=== PATIENT | female | born 2000 | race Caucasian/White ===

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

== ENCOUNTER 2024-12-14 11:21 | Emergency (ER) | payer BC, OTHER ==
--- NOTE | 2024-12-14 11:53 | ED ---
General Adult HPI - General Chief complaint: ENT Stated complaint: GLORIA Time Seen by Provider: 12/14/24 11:37 Source: patient, RN notes reviewed Mode of arrival: ambulatory Limitations: no limitations - History of Present Illness Initial comments: 24-year-old female presents to the emergency department patient for body sensation in throat. Patient states that she was seen at urgent care about a month ago and was told she had a peritonsillar abscess. She was started on antibiotics and steroids. She did not have drainage performed. Patient was concerned that this is still present and causing her to have foreign body sensation in her throat. She states that she feels that this is causing her to have some difficulties with swallowing. She denies any fever, chills, nausea, vomiting, pain of the throat. - Related Data Home Medications Medication Instructions Recorded Confirmed No Known Home Medications 12/01/17 12/01/17 Allergies Allergy/AdvReac Type Severity Reaction Status Date / Time No Known Allergies Allergy Verified 12/14/24 11:33 Review of Systems ROS Statement: Those systems with pertinent positive or pertinent negative responses have been documented in the HPI. ROS Other: All systems not noted in ROS Statement are negative. Past Medical History Past Medical History: No Reported History History of Any Multi-Drug Resistant Organisms: None Reported Past Surgical History: No Surgical Hx Reported Past Psychological History: No Psychological Hx Reported Past Alcohol Use History: Occasional Past Drug Use History: None Reported General Exam Limitations: no limitations General appearance: alert, in no apparent distress Head exam: Present: atraumatic, normocephalic, normal inspection Eye exam: Present: normal appearance, PERRL, EOMI. Absent: scleral icterus, conjunctival injection, periorbital swelling ENT exam: Present: normal exam, mucous membranes moist Neck exam: Present: normal inspection. Absent: tenderness, meningismus, lymphadenopathy Respiratory exam: Present: normal lung sounds bilaterally. Absent: respiratory distress, wheezes, rales, rhonchi, stridor Cardiovascular Exam: Present: regular rate, normal rhythm, normal heart sounds. Absent: systolic murmur, diastolic murmur, rubs, gallop, clicks Extremities exam: Present: normal inspection, full ROM, normal capillary refill. Absent: tenderness, pedal edema, joint swelling, calf tenderness Back exam: Present: normal inspection Neurological exam: Present: alert, oriented X3 Psychiatric exam: Present: normal affect, normal mood Skin exam: Present: warm, dry, intact, normal color. Absent: rash Course Vital Signs 12/14/24 11:29 Temperature 98.1 F Pulse Rate 87 Respiratory 18 Rate Blood Pressure 137/84 O2 Sat by Pulse 99 Oximetry Medical Decision Making - Medical Decision Making Was pt. sent in by a medical professional or institution (KEITH Barney, AUTOMATION CONTROLS EXPERT, urgent care, hospital, or group home...) When possible be specific @ -[No] Did you speak to anyone other than the patient for history (EMS, parent, family, police, friend...)? What history was obtained from this source @ -[No] Did you review nursing and triage notes (agree or disagree)? Why? @ -[I reviewed and agree with nursing and triage notes] Were old charts reviewed (outside hosp., previous admission, EMS record, old EKG, old radiological studies, urgent care reports/EKG's, group home records)? Report findings @ -[No old charts were reviewed] Differential Diagnosis (chest pain, altered mental status, abdominal pain women, abdominal pain men, vaginal bleeding, weakness, fever, dyspnea, syncope, headache, dizziness, GI bleed, back pain, seizure, CVA, palpatations, mental health, musculoskeletal)? @ -[not applicable] EKG interpreted by me (3pts min.). @ -[As above] X-rays interpreted by me (1pt min.). @ -[None done] CT interpreted by me (1pt min.). @ -[None done] U/S interpreted by me (1pt. min.). @ -[None done] What testing was considered but not performed or refused? (CT, X-rays, U/S, labs)? Why? @ -[None] What meds were considered but not given or refused? Why? @ -[None] Did you discuss the management of the patient with other professionals (professionals i.e. KEITH Barney, AUTOMATION CONTROLS EXPERT, lab, RT, psych nurse, social media editor, tape cutter, teacher, chief business officer, disease case manager rn)? Give summary @ -[No] Was smoking cessation discussed for >3mins.? @ -[No] Was critical care preformed (if so, how long)? @ -[No] Were there social determinants of health that impacted care today? How? (Homelessness, low income, unemployed, alcoholism, drug addiction, transportation, low edu. Level, literacy, decrease access to med. care, intermediate, rehab)? @ -[No] Was there de-escalation of care discussed even if they declined (Discuss DNR or withdrawal of care, Hospice)? DNR status @ -[No] What co-morbidities impacted this encounter? (DM, HTN, Smoking, COPD, CAD, Cancer, CVA, ARF, Chemo, Hep., AIDS, mental health diagnosis, sleep apnea, morbid obesity)? @ -[None] Was patient admitted / discharged? Hospital course, mention meds given and route, prescriptions, significant lab abnormalities, going to OR and other pertinent info. @ -[hospital course] Undiagnosed new problem with uncertain prognosis? @ -[No] Drug Therapy requiring intensive monitoring for toxicity (Heparin, Nitro, Insulin, Cardizem)? @ -[No] Were any procedures done? @ -[No] Diagnosis/symptom? @ -[default] Acute, or Chronic, or Acute on Chronic? @ -[default] Uncomplicated (without systemic symptoms) or Complicated (systemic symptoms)? @ -[default] Side effects of treatment? @ -[No] Exacerbation, Progression, or Severe Exacerbation? @ -[No] Poses a threat to life or bodily function? How? (Chest pain, [place], [place], pneumonia, PE, COPD, DKA, ARF, appy, cholecystitis, CVA, Diverticulitis, Homicidal, Suicidal, threat to staff... and all critical care pts) @ -[No] - Lab Data Lab Results 12/14/24 Range/Units 12:01 Group A Strep (PCR) NOT DETECTED (Not Detectd) Disposition Clinical Impression: Foreign body sensation in throat Disposition: HOME SELF-CARE Condition: Stable Instructions (If sedation given, give patient instructions): Pharyngitis (ED) Additional Instructions: Please follow-up with your doctor. Return to the emergency department for new or worsening symptoms. Is patient prescribed a controlled substance at d/c from ED?: No Referrals: Nonstaff,Physician [Primary Care Provider] - 1-2 days
--- NOTE | 2024-12-14 12:19 | XR ---
EXAMINATION TYPE: XR chest 2V DATE OF EXAM: 12/14/2024 12:07 PM COMPARISON: None CLINICAL INDICATION: Female, 24 years old with history of shortness of breath; [facility] TECHNIQUE: XR chest 2V Frontal and lateral views of the chest. FINDINGS: Lungs/Pleura: There is no evidence of pleural effusion, focal consolidation, or pneumothorax. Pulmonary vascularity: Unremarkable. Heart/mediastinum: Cardiomediastinal silhouette is unremarkable. Musculoskeletal: No acute osseous pathology. Other findings: None IMPRESSION: No acute cardiopulmonary disease/process. [facility], , 12/14/2024 12:17 PM
--- NOTE | 2024-12-14 12:20 | XR ---
EXAMINATION TYPE: XR soft tissue neck DATE OF EXAM: 12/14/2024 12:07 PM COMPARISON: None CLINICAL INDICATION: Female, 24 years old with history of pain, fb sensation; [facility] TECHNIQUE: The soft tissues of the neck were imaged in frontal and lateral views. FINDINGS: The prevertebral soft tissues are unremarkable. There is no evidence of mass effect or trac heal deviation. No acute osseous abnormality demonstrated. No evidence of subglottic narrowing. IMPRESSION: No significant abnormality identified within the soft tissues of the neck. No evidence for radiopaque foreign body. [facility], , 12/14/2024 12:17 PM
[2024-12-14 13:09] VITALS: BP 125/98; PULSE 82; RESP 19; TEMP 98.2
== END 2024-12-14 13:09 | disposition home or self-care (01) ==
LOC: EC 11:21
DX: R09.A2 Foreign body sensation, throat (principal)
CPT/HCPCS: 70360; 71046; 87070; 87651; 99285

== ENCOUNTER 2025-01-21 14:51 | Inpatient (IN) | payer MEDICAID, OTHER ==
--- NOTE | 2025-01-21 15:39 | ED ---
Psych HPI - General Chief Complaint: Psychiatric Symptoms Stated Complaint: R foot injury Time Seen by Provider: 01/21/25 15:37 Source: patient, RN notes reviewed, old records reviewed Mode of arrival: ambulatory Limitations: no limitations - History of Present Illness Initial Comments: This is a 24-year-old female to ER for evaluation of psychiatric illness patient sent in by primary care with need for inpatient psychiatric evaluation and treatment MD Complaint: suicidal ideation, feels depressed -: days(s) Associated Psychiatric Symptoms: depression, suicidal ideation, racing thoughts Quality: constant, getting worse Improves With: none Worsens With: none Associated Symptoms: denies other symptoms Treatments Prior to Arrival: placed on mental health hold If Self Harm: admits thoughts of self harm - Related Data Previous Rx's Medication Instructions Recorded Melatonin 5 mg PO HS 30 Days #30 tab 01/28/25 Nicotine 14Mg/24Hr Patch [Habitrol] 1 patch TRANSDERM DAILY patch 01/28/25 Nicotine Gum (Polacrilex) 2 mg BUCCAL Q4HR PRN pieceofgum 01/28/25 [Nicorette] Paliperidone [Invega] 6 mg PO HS 30 Days #30 tab 01/28/25 Allergies Allergy/AdvReac Type Severity Reaction Status Date / Time salmon oil Allergy Rash/Hives Verified 01/24/25 18:54 Review of Systems ROS Statement: Those systems with pertinent positive or pertinent negative responses have been documented in the HPI. ROS Other: All systems not noted in ROS Statement are negative. Past Medical History Past Medical History: No Reported History History of Any Multi-Drug Resistant Organisms: None Reported Past Surgical History: No Surgical Hx Reported Past Psychological History: Anxiety, Depression Smoking Status: Current every day smoker, Vaper Past Alcohol Use History: Occasional Past Drug Use History: None Reported - Past Family History Mother History Unknown: Yes General Exam Limitations: no limitations General appearance: alert, in no apparent distress Head exam: Present: atraumatic, normocephalic, normal inspection Eye exam: Present: normal appearance, PERRL, EOMI. Absent: scleral icterus, conjunctival injection, periorbital swelling ENT exam: Present: normal exam, mucous membranes moist Neck exam: Present: normal inspection. Absent: tenderness, meningismus, lymphadenopathy Respiratory exam: Present: normal lung sounds bilaterally. Absent: respiratory distress, wheezes, rales, rhonchi, stridor Cardiovascular Exam: Present: regular rate, normal rhythm, normal heart sounds. Absent: systolic murmur, diastolic murmur, rubs, gallop, clicks GI/Abdominal exam: Present: soft, normal bowel sounds. Absent: distended, tenderness, guarding, rebound, rigid Extremities exam: Present: normal inspection, full ROM, normal capillary refill. Absent: tenderness, pedal edema, joint swelling, calf tenderness Back exam: Present: normal inspection Neurological exam: Present: alert, oriented X3, CN II-XII intact Psychiatric exam: Present: normal affect, normal mood Skin exam: Present: warm, dry, intact, normal color. Absent: rash Course Vital Signs 01/21/25 01/21/25 14:58 21:21 Temperature 98.2 F 97.8 F Pulse Rate 103 H Pulse Rate [ 81 Pulse Oximetery ] Respiratory 22 16 Rate Blood Pressure 132/83 Blood Pressure 116/76 [Left Arm Sitting] O2 Sat by Pulse 100 99 Oximetry - Reevaluation(s) Reevaluation #1: 01/21/25 20:03 Medical records reviewed Reevaluation #2: 01/21/25 20:03 Medical cleared for psychiatric evaluation Reevaluation #3: Was pt. sent in by a medical professional or institution (, PA, AUDIO VISUAL DIRECTOR, urgent care, hospital, or jail...) When possible be specific @ -no Did you speak to anyone other than the patient for history (EMS, parent, family, police, friend...)? What history was obtained from this source @ -no Did you review nursing and triage notes (agree or disagree)? Why? @ -agree Are old charts reviewed (outside hosp., previous admission, EMS record, old EKG, old radiological studies, urgent care reports/EKG's, jail records)? Report findings @ -yes Differential Diagnosis (chest pain, altered mental status, abdominal pain women, abdominal pain men, vaginal bleeding, weakness, fever, dyspnea, syncope, headache, dizziness, GI bleed, back pain, seizure, CVA, palpatations, mental health, musculoskeletal)? @ -prior EKG interpreted by me (3pts min.). @ -no X-rays interpreted by me (1pt min.). @ -no CT interpreted by me (1pt min.). @ -no U/S interpreted by me (1pt. min.). @ -no What testing was considered but not performed or refused? (CT, X-rays, U/S, labs)? Why? @ -none What meds were considered but not given or refused? Why? @ -none Did you discuss the management of the patient with other professionals (professionals i.e. , PA, AUDIO VISUAL DIRECTOR, lab, RT, psych nurse, neonatal social worker, refractory worker, teacher, chief security officer, outpatient case manager)? Give summary @ -no Was smoking cessation discussed for >3mins.? @ -no Was critical care preformed (if so, how long)? @ -no Were there social determinants of health that impacted care today? How? (Homelessness, low income, unemployed, alcoholism, drug addiction, transportation, low edu. Level, literacy, decrease access to med. care, correction, rehab)? @ -none Was there de-escalation of care discussed even if they declined (Discuss DNR or withdrawal of care, Hospice)? DNR status @ -no What co-morbidities impacted this encounter? (DM, HTN, Smoking, COPD, CAD, Cancer, CVA, ARF, Chemo, Hep., AIDS, mental health diagnosis, sleep apnea, morbid obesity)? @ -none Was patient admitted / discharged? Hospital course, mention meds given and route, prescriptions, significant lab abnormalities, going to OR and other pertinent info. @ - 24 female to the ER for evaluation at this point patient presents today for psychiatric illness, patient will be transferred for inpatient psychiatric treatment Transferred for inpatient psychiatric evaluation Undiagnosed new problem with uncertain prognosis? @ -no Drug Therapy requiring intensive monitoring for toxicity (Heparin, Nitro, Insulin, Cardizem)? @ -no Were any procedures done? @ -no Diagnosis/symptom? @ -Acute psychosis Acute, or Chronic, or Acute on Chronic? @ -Acute Uncomplicated (without systemic symptoms) or Complicated (systemic symptoms)? @ -Complicated Side effects of treatment? @ -no Exacerbation, Progression, or Severe Exacerbation? @ -exacerbation Poses a threat to life or bodily function? How? (Chest pain, [place], [place], pneumonia, PE, COPD, DKA, ARF, appy, cholecystitis, CVA, Diverticulitis, Homicidal, Suicidal, threat to staff... and all critical care pts) @ -no Reevaluation #4: Differential Mental Health Depression, anxiety, bipolar, psychosis, schizophrenia, borderline personality, situational depression, adjustment disorder, behavioral disorder, brain tumor, malingering, substance abuse, encephalopathy, medication reaction, dementia, hypothyroidism, degenerative neurologic disorder, lupus.... This is not meant to be all-inclusive list Medical Decision Making - Medical Decision Making 24 female to the ER for evaluation at this point patient presents today for psychiatric illness, patient will be transferred for inpatient psychiatric treatment - Lab Data Lab Results 01/21/25 Range/Units 18:33 SARS-CoV-2 (PCR) Not Detected (Not Detectd) Disposition Clinical Impression: Acute anxiety, Depression, Suicidal ideation, Adjustment reaction of adult life Disposition: TRANSFER TO PSYCH HOSP/UNIT Condition: Stable Is patient prescribed a controlled substance at d/c from ED?: No
[2025-01-21] MEDS: LORazepam 1 MG TAB PO STA (16:34)
[2025-01-21] MEDS ORDERED: OLANZapine 10 MG VIAL IM PRN (20:58)
[2025-01-21] MEDS ORDERED: IBUPROFEN 600 MG TAB PO PRN (20:58)
[2025-01-21] MEDS ORDERED: haloperidoL 5 MG TAB PO PRN (20:58)
[2025-01-21] MEDS ORDERED: LORazepam 2 MG/ML INJ IM PRN (20:58)
[2025-01-21] MEDS ORDERED: MAG HYDROX/AL HYDROX/SIMETH 355 ML BOTTLE PO PRN (20:58)
[2025-01-21] MEDS ORDERED: MAGNESIUM HYDROXIDE 2,400 MG/30 ML CUP PO PRN (20:58)
[2025-01-21] MEDS ORDERED: ACETAMINOPHEN TAB 325 MG TAB PO PRN (20:58)
[2025-01-22 08:08] LABS: Appearance,Urine Cloudy (Clear); Bilirubin,Urine Negative (Negative); Blood,Urine Moderate (Negative); Color,Urine Yellow; Glucose,Urine (UA) Negative (Negative); Ketones,Urine Negative (Negative); Leukocyte Esterase,Urine Negative (Negative); Mucus,Urine Many /hpf; Nitrite,Urine Negative (Negative); PH, Urine 5.5 (5.0-8.0); Protein,Urine Trace (Negative); Specific Gravity,Urine 1.028 (1.001-1.035); Squamous Epithelial Cell,Urine 3 /hpf (0-4); Urobilinogen,Urine <2.0 mg/dL (<2.0); WBC,Urine 4 /hpf (0-5)
[2025-01-22 10:41] LABS: Urine Alcohol Negative (Negative); Urine Barbiturate Negative (Negative); Urine Cocaine Negative (Negative); Urine Methadone Negative (Negative); Urine Opiates Negative (Negative); Urine Phencyclidine Negative (Negative)
[2025-01-22] MEDS: diphenhydrAMINE 50 MG/ML 1 ML VIAL IM STA (11:49)
[2025-01-22] MEDS: OLANZapine 10 MG VIAL IM STA (11:50)
--- NOTE | 2025-01-22 12:12 | P.MHFACE ---
Face to Face Restrain/Seclus - Evaluation Patient's Immediate Situation: Violent behavior Patient's Immediate Situation - Comment: Patient was seen agitated and yelling on the unit. She was checking doors attempting to elope. She was not redirectable and required security and PRN medications that were effective. Patient's Reaction to the Intervention: Uncooperative, Aggressive Patient's Medical & Behavioral Condition: Drowsy, Bizarre behavior Face to Face Eval of Restraint Date: 01/22/25 Face to Face Eval of Restraint Time: 12:00
--- NOTE | 2025-01-22 12:29 | P.HP ---
Psychiatric H&P - . H&P Date: 01/22/25 History & Physical: Allergies Allergy/AdvReac Type Severity Reaction Status Date / Time No Known Allergies Allergy Verified 01/21/25 15:04 Vital Signs Temp 98.0 F 01/22/25 11:09 Pulse 76 01/22/25 11:09 Resp 18 01/22/25 11:09 BP 126/80 01/22/25 11:09 Pulse Ox 98 01/22/25 11:09 FiO2 Intake & Output 01/21/25 01/22/25 01/22/25 18:59 06:59 18:59 Weight 50.349 kg 49.64 kg Laboratory Last Values Urine Color Yellow 01/22/25 07:49 Urine Appearance Cloudy (Clear) H 01/22/25 07:49 Urine pH 5.5 (5.0-8.0) 01/22/25 07:49 Ur Specific [place] 1.028 (1.001-1.035) 01/22/25 07:49 Urine Protein Trace (Negative) H 01/22/25 07:49 Urine Glucose (UA) Negative (Negative) 01/22/25 07:49 Urine Ketones Negative (Negative) 01/22/25 07:49 Urine Blood Moderate (Negative) H 01/22/25 07:49 Urine Nitrite Negative (Negative) 01/22/25 07:49 Urine Bilirubin Negative (Negative) 01/22/25 07:49 Urine Urobilinogen <2.0 mg/dL (<2.0) 01/22/25 07:49 Ur Leukocyte Esterase Negative (Negative) 01/22/25 07:49 Urine WBC 4 /hpf (0-5) 01/22/25 07:49 Ur Squamous Epith Cells 3 /hpf (0-4) 01/22/25 07:49 Urine Mucus Many /hpf (None) H 01/22/25 07:49 Urine HCG, Qual Not Detected (Not Detectd) 01/22/25 07:49 Urine Opiates Screen Negative (Negative) 01/22/25 07:49 Urine Methadone Screen Negative (Negative) 01/22/25 07:49 Ur Propoxyphene Screen Negative (Negative) 01/22/25 07:49 Urine Barbiturates Negative (Negative) 01/22/25 07:49 Ur Phencyclidine Scrn Negative (Negative) 01/22/25 07:49 Ur Amphetamine Screen Positive (Negative) A 01/22/25 07:49 U Benzodiazepines Scrn Positive (Negative) A 01/22/25 07:49 Urine Cocaine Screen Negative (Negative) 01/22/25 07:49 U Cannabinoids Screen Positive (Negative) A 01/22/25 07:49 Urine Alcohol Negative (Negative) 01/22/25 07:49 U Creatinine Drug Scrn 259.0 mg/dL (>=20.0) 01/22/25 07:49 SARS-CoV-2 (PCR) Not Detected (Not Detectd) 01/21/25 18:33 01/22/25 12:14 IDENTIFYING DATA: Patient is a 24-year-old female, living with parents, unemployed CHIEF COMPLAINT: SI HPI: Patient presented to the hospital with mental health concerns. Per EPS, "Patient presented to ED initially for right foot injury, patient had jumped on a table 2 days ago and injured her foot. Patient during ER stay expressed suicidal ideations. Patient assessed in ER27 with parents at bedside per patient request. Patient observed to be sitting up in stretcher at this time. Patient observed to appear disheveled and unkept with fair hygiene. Patient observed to have no eye contact, restlessness, and observed to appear irritable and anxious. Patient denies any history of mental health concerns and no previous mental health hospitalizations. Patient states that she is looking forward to dying, althought has no current plan. Patient states that she was taking zoloft for depression and weaned herself off of it becasue she did not like how it made her feel. Patient unable to elaborate on what she did not like about the medication and could not describe how it made her feel. Patient parents expressed concerns related to auditory and visual hallucinations. Patient denies these and became irritable. Focused re-directed to patient. Patient denies any psychotic symptoms. Spoke to parents again with patient permission, per patient parents patient has been experiencing auditory and visual hallucinations. Describes that patient has believed she could hear and see people inside the home and hear them constantly in the attic. Patient has come to the point of making police reports related to people being in the home, but no other individuals found to be in the home. Parents describe patient having erratic and impulsive behaviors recently. They include that patient spontaneously went on a trip to [place] and was placed in senior living for entering a home that she believed belonged to her because she seen the for sale sign. Patient parents express concern that patient is a potential danger to herself and possibly others at this time. Patient appears to have poor insight into condition, poor judgement, and does not understand reason for needed treatment." Patient was observed in her room and was agreeable to speak with senior grant writer in her room. Patient displayed irritability, not forthcoming with information. She did admit to stopping her antidepressant of 6 months 2 weeks ago due to "not liking my mood." Patient displayed poor eye contact and was fixated on being discharged so that she can smoke her vape. This was discouraged and senior grant writer offered either nicotine gum or patch to help with nicotine cravings however patient declined. She denied any sleep or appetite changed but did admit to low energy, anhedonia, poor concentration. Patient denies any suicidal or homicidal ideations intent or plan. At this time patient denies any auditory or visual hallucinations. Patient denies any flight of ideas racing thoughts and increased in goal directed behavior. Patient admits to using cannabis and nicotine daily. Patient was initially agreeable with [facility] however she quickly became less cooperative, more agitated and was attempting to elope the unit, requiring PRN medications. PAST PSYCHIATRIC HISTORY: Patient has a reported history of depression and ADHD. Patient denies being on any psychiatric medications. She most recently was prescribed zoloft but stopped this 2 weeks ago. Patient denies any previous hospitalizations. Patient denies any psychiatric outpatient follow-up. Patient denies any history of suicide attempts in the past. PMH: as per ER note ALLERGIES: as per EMR SUBSTANCE USE HISTORY: as per HPI FAMILY PSYCHIATRIC/SUBSTANCE USE HISTORY: denies SOCIAL HISTORY: Patient is single and has no children. She completed high school and is currently unemployed, living with her parents. MENTAL STATUS EXAM: General Appearance: Patient appears to be stated age is alert, uncooperative. Patient appears to have poor hygiene and grooming. Behavior: Patient is irritable, guarded and not forthcoming Speech: Patient's speech is fluent and nonpressured. Loud volumes at times when yelling Mood/Affect: Patient reports their mood is depressed, affect is congruent and labile Suicidality/Homicidality: Patient denies having any homicidal ideation intent or plan. Denies any suicidal ideations intent or plan Perceptions: Patient denies any visual hallucinations and denies any auditory hallucinations Though content/process: There is no evidence of any delusional thought content and thought process is linear but illogical at times Memory and concentration: AOX3, grossly intact for the purposes of this session. Can spell "WORLD" backwards Judgment and insight: Poor STRENGTHS/WEAKNESSES: strength is that patient is resilient. Weakness is that patient has poor judgment/insight and is impulsive INTELLECT: Average IMPRESSIONS: Psychosis, unspecified r/o Bipolar I disorder, current episode mixed with psychotic features vs schizoaffective disorder, bipolar type Nicotine dependence Cannabis use disorder PLAN: -Patient is admitted under involuntary status to [facility] for stabilization of psychiatric symptoms and safety. Patient has not signed adult voluntary form and and is placed in patient's chart. A second certification was completed and along with petition will be filed for court. -Medications : Start invega 3 mg at bedtime for psychosis -haldol/ativan PRN for agitation/aggression -Patient was counselled on substance abuse and desired to cut back on use -Patient was informed of the risks, benefits and side effects of the medication and patient verbally consented to taking the medications. Patient did not sign med consent form and was placed in chart. Patient offered and declined patient education sheet for psychotropic medications. -Internal Medicine consult to perform medical evaluation and physical. -NRT -nicotine patch -SW on board for discharge planning. Encourage patient to participate in groups to work on coping skills. Will await deferral and court date.
--- NOTE | 2025-01-22 13:59 | P.CONS ---
History of Present Illness - Reason for Consult Consult date: 01/22/25 Medical management Requesting physician: Chrystal Jiménez - Chief Complaint Abnormal behavior - History of Present Illness Went to three-phase psychiatry unit to see the patient. Nurse informed me that patient had boarded herself in the room. Was given sedatives. Does not be a good time to see the patient. Past Medical History Past Medical History: No Reported History History of Any Multi-Drug Resistant Organisms: None Reported Past Surgical History: No Surgical Hx Reported Past Anesthesia/Blood Transfusion Reactions: No Reported Reaction Smoking Status: Current every day smoker, Vaper - Past Family History Mother History Unknown: Yes Medications and Allergies Home Medications Medication Instructions Recorded Confirmed Type No Known Home Medications 12/01/17 12/01/17 History Allergies Allergy/AdvReac Type Severity Reaction Status Date / Time No Known Allergies Allergy Verified 01/21/25 15:04 Physical Exam Vitals: Vital Signs Temp Pulse Pulse Resp BP BP Pulse Ox 01/22/25 11:09 98.0 F 76 18 126/80 98 01/21/25 21:21 97.8 F 81 16 116/76 99 01/21/25 14:58 98.2 F 103 H 22 132/83 100 Intake and Output 01/21/25 01/22/25 01/22/25 22:59 06:59 14:59 Other: Weight 49.64 kg Results Labs: Abnormal Lab Results - Last 24 Hours (Table) 01/22/25 01/22/25 Range/Units 07:49 07:49 Urine Appearance Cloudy H (Clear) Urine Protein Trace H (Negative) Urine Blood Moderate H (Negative) Urine Mucus Many H (None) /hpf Ur Amphetamine Screen Positive A (Negative) U Benzodiazepines Scrn Positive A (Negative) U Cannabinoids Screen Positive A (Negative)
[2025-01-22] MEDS: NICOTINE 14MG/24HR PATCH TRANSDERM SCH (14:19)
[2025-01-23] MEDS: PALIPERIDONE 3 MG TAB.ER.24 PO SCH (04:20)
[2025-01-23] MEDS ORDERED: OLANZapine ODT 10 MG TAB PO PRN (09:19)
[2025-01-23] MEDS ORDERED: OLANZapine 10 MG VIAL IM PRN (09:19)
[2025-01-23] MEDS: diphenhydrAMINE 50 MG/ML 1 ML VIAL IM STA (09:29)
[2025-01-23] MEDS: OLANZapine 10 MG VIAL IM STA (09:29)
--- NOTE | 2025-01-23 10:33 | P.MHFACE ---
Face to Face Restrain/Seclus - Evaluation Patient's Immediate Situation: Violent behavior Patient's Immediate Situation - Comment: Patient agitated and demanding to go home. She was yelling, slamming doors and not redirectable. Security was contacted and IM medications administered. Patient more calm afterwards but still irritable Patient's Reaction to the Intervention: Angry, Aggressive Patient's Medical & Behavioral Condition: Agitated, Bizarre behavior Need to Continue or Terminate Restraint or Seclusion: Terminate
--- NOTE | 2025-01-23 10:41 | P.PN ---
Progress Note - Text Progress Note Date: 01/23/25 Interval History: Patient was seen wandering the hallways, upset and demanding to leave and being upset that she is involuntarily here. Attempted to speak to patient in an effort to calm her down however patient was not redirectable and stormed off. Patient was not cooperative, was seen yelling and slamming doors and security ultimately had to be called with as needed IM Zyprexa/Benadryl administered. Patient was more calm after as needed medications however was still irritable and antagonistic with public relations writer, expressed her dislike for IM medications and she was encouraged to take medications by mouth instead. She refused her oral Invega last night. Mental Status Exam: General Appearance: Patient appears to be stated age is alert, uncooperative. Behavior: Patient is agitated, upset Speech: Patient's speech is fluent and slightly pressured, loud volume Mood/Affect: Mood is irritable, affect is congruent and labile. Suicidality/Homicidality: Patient denies having any suicidal or homicidal ideation intent or plan. Perceptions: Patient denies any visual hallucinations and denies any auditory hallucinations Though content/process: There is no evidence of any delusional thought content and thought process is linear. Memory and concentration: AOX3, grossly intact for the purposes of this session Judgment and insight: Poor Assessment Psychosis, unspecified Rule out bipolar 1 disorder, current episode mixed with psychotic features versus schizoaffective disorder, bipolar type Nicotine dependence Cannabis use disorder Plan: -Patient continues to meet criteria for inpatient psychiatric admission for symptom stabilization and safety. Patient has not signed adult voluntary form and medication consent and was placed in patient's chart. -Medications: Continue Invega 3 mg at bedtime for psychosis -When necessary Ativan and Zyprexa for agitation/aggression. -Labs: Reviewed -NRT - nicotine patch -SW on board for discharge planning. Encouraged the patient to participate in milieu. Currently awaiting deferral with attorney general and court date.
--- NOTE | 2025-01-24 11:38 | P.PN ---
Progress Note - Text Progress Note Date: 01/24/25 Interval History: Patient was seen wandering the hallways and was directable and agreeable to sp eak with typewriter aligner in the call. She was attempting to call her mom however she had reached voicemail. She was more cooperative with typewriter aligner today, more calm however did display disorganization in thoughts. She took her Invega last night. Patient has a deferral scheduled for this morning and this was discussed further with the patient. She has been tending to her ADLs. She did display some bizarre behaviors as evidenced by having a sanitary pad wrapped on her foot given her recently cutting her foot prior to admission. Patient talked about her previous fantasies of suicidal ideations, states that she acts out all the time aggressively towards her parents and then asked if she would ever see them again. Patient was encouraged to continue taking her medications by mouth so that she does not have to receive any IM injections and to control her aggressive outburst. At this time patient denies any suicidal or homicidal ideations, intent or plan. Patient denies any auditory, visual hallucinations. Patient denies any side effects from the medications and has been compliant with meds. Mental Status Exam: General Appearance: Patient appears to be stated age is alert, directable, and c ooperative. Behavior: Patient is calmly standing without any agitated behavior. Speech: Patient's speech is fluent and nonpressured. Mood/Affect: Mood is improving mildly, affect is congruent and constricted. Suicidality/Homicidality: Patient denies having any suicidal or homicidal ideation intent or plan. Perceptions: Patient denies any visual hallucinations and denies any auditory hallucinations Though content/process: There is evidence of disorganization in thoughts, magical thinking Memory and concentration: AOX3, grossly intact for the purposes of this session Judgment and insight: Improving mildly Assessment Psychosis, unspecified Rule out bipolar 1 disorder current episode mixed with psychotic features versus schizoaffective disorder bipolar type Nicotine dependence Cannabis use disorder Plan: -Patient continues to meet criteria for inpatient psychiatric admission for symptom stabilization and safety. Patient has not signed adult voluntary form and medication consent and was placed in patient's chart. -Medications: Increase Invega to 6 mg at bedtime for psychosis -When necessary Ativan and Zyprexa for agitation/aggression. -Labs: Reviewed -NRT - nicotine patch and gum as needed -SW on board for discharge planning. Encouraged the patient to participate in milieu. Deferral scheduled for this morning, court date scheduled for next Monday
[2025-01-24] MEDS: NICOTINE GUM (POLACRILEX) 2 MG GUM BUCCAL PRN (16:26)
--- NOTE | 2025-01-24 17:52 | P.CONS ---
History of Present Illness - Reason for Consult Consult date: 01/24/25 Medical management Requesting physician: Chrystal Jiménez - Chief Complaint Left foot toe pain - History of Present Illness Nurse called me today that patient was in a much better mood and I could see her today. She initially presented the ER because she had jumped on a table 2 days prior to presentation injuring her left foot. She was restless irritable anxious. She expressed some suicidal ideations. She was prescribed Zoloft for depression and she had apparently taken off of the same. Parents had reported consistent auditory and visual hallucinations. Today when I walked in the room patient sitting on the floor writing apology letters. She is hyperactive in her responses. Laughing. She has a dressing on the left foot 2nd and 3rd toe. Apparently placed in the ER. Otherwise she is eating well. Has been ambulating. 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 Currently not working. Does smoke some cigarettes. Denies use of recreational drugs. Lives with her parents. Physical examination: VITAL SIGNS: 98, 80, 18, RN 12 x 68, 98% room GENERAL: BMI 20, sitting crosslegged on the floor smiling. EYES: [Pupils equal. Conjunctiva sara]l. HEENT: [External appearance of nose and ears normal, oral cavity grossly n ormal]. NECK: [JVD not raised; masses not palpable]. HEART: [First and second heart sounds are normal; no edema]. LUNGS:[ Respiratory rate normal; clear to auscultation]. ABDOMEN: [Soft, nontender, liver spleen not palpable, no masses palpable]. PSYCH: [Alert and oriented x3; mood and affect anxious]l. MUSCULOSKELETAL:No Clubbing/cyanosis;muscles-grossly intact. Left foot 2nd and 3rd toe. Some bruising slight breakdown of skin. [Prior to that I remove the dressing]. Some tenderness NEUROLOGICAL: [Cranial nerves grossly intact; no facial asymmetry, power and sensation grossly intact]. LYMPHATICS: [No lymph nodes palpable in the axilla and neck] NEUROLOGICAL: None INVESTIGATIONS, reviewed in the clinical context: January 22: UA positive for moderate blood. Urine drug screen positive for amphetamine, benzodiazepine, cannabinoids Assessment plan: - Recreational use of amphetamine, benzodiazepine, cannabinoids as urine positive for the same. Patient may have had some withdrawals from the same initially. - Acute trauma to the left foot 2nd and 3rd toe from jumping of foot on the table. Some breakdown of skin with local cellulitis. Silvadene cream. Kerlix and wrap wrap with 2 fingers together. Applied twice daily. -. Psychosis unspecified. Rule out bipolar 1 disorder. With psychotic features/schizoaffective disorder. Follow-up with psychiatry - Chronic nicotine dependence Nicotine patch Care was discussed with the patient. Patient seen in the presence of the nurse. Thank you Past Medical History Past Medical History: No Reported History History of Any Multi-Drug Resistant Organisms: None Reported Past Surgical History: No Surgical Hx Reported Past Anesthesia/Blood Transfusion Reactions: No Reported Reaction Smoking Status: Current every day smoker, Vaper - Past Family History Mother History Unknown: Yes Medications and Allergies Home Medications Medication Instructions Recorded Confirmed Type No Known Home Medications 12/01/17 12/01/17 History Allergies Allergy/AdvReac Type Severity Reaction Status Date / Time No Known Allergies Allergy Verified 01/21/25 15:04 Physical Exam Vitals: Vital Signs Temp Pulse Resp BP 01/24/25 11:26 98.0 F 80 18 112/68 01/23/25 21:00 97.6 F 79 16 94/58
[2025-01-24] MEDS: BACITRACIN OINT 1 EACH PACKET TOPICAL SCH (18:16)
[2025-01-24] MEDS: diphenhydrAMINE 50 MG CAP PO STA (20:34)
[2025-01-24] MEDS: PALIPERIDONE 6 MG TAB.ER.24 PO SCH (20:34)
[2025-01-24] MEDS: FAMOTIDINE 20 MG TAB PO STA (20:34)
[2025-01-24] MEDS: LORazepam 1 MG TAB PO PRN (20:36)
[2025-01-24] MEDS: predniSONE 20 MG TAB PO STA (20:38)
[2025-01-25] MEDS: diphenhydrAMINE 25 MG CAP PO SCH (01:44)
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
--- NOTE | 2025-01-26 11:56 | P.PN ---
Progress Note - Text Progress Note Date: 01/26/25 Dictation was produced using [employer] dictation software. Please excuse any grammatical, word or spelling errors. Interval history: Patient was seen in her room, laying in bed and was directable and agreeable to speak with the documentation writer in the office for psychiatric follow-up. The patient states that she is feeling tired, states that she slept well last night, it is reported that she slept 6 hours last night, states that she was not able to eat breakfast this morning, and reported that she is not feeling hungry. Pt was encouraged to eat her meals and to ask for snacks. States that depression and anxiety are at the moderate side, she rated both at 5/10, she denied any current SI/HI or self harm. She denied any current AVH, or paranoia. She has been compliant with her medication, and she denied any side effects. She denied any muscle stiffness, rigidity, abnormal movements or drooling. States that she was able to speak with her mother yesterday, and reported that it was a good conversation. States that she is tending to her ADL, pt was encouraged to participate in the milieu, and to attend groups. Mental Status Exam: General Appearance: Patient appears to be stated age is alert, directable, and cooperative. Behavior: Patient is calmly standing without any agitated behavior. Speech: Patient's speech is fluent and nonpressured. Mood/Affect: Mood is improving mildly, affect is congruent and constricted. Suicidality/Homicidality: Patient denies having any suicidal or homicidal ideation intent or plan. Perceptions: Patient denies any visual hallucinations and denies any auditory hallucinations Though content/process: There is evidence of disorganization in thoughts, magic al thinking Memory and concentration: AOX3, grossly intact for the purposes of this session Judgment and insight: Improving mildly Assessment Psychosis, unspecified Rule out bipolar 1 disorder current episode mixed with psychotic features versus schizoaffective disorder bipolar type Nicotine dependence Cannabis use disorder Assessment/Plan: Continue with current diagnosis. Patient continues to meet criteria for inpatient psychiatric admission for symptom stabilization and safety. Patient will be maintained on current psychotropic medication regimen which include Invega 6 mg p.o. at bedtime. No changes today, will continue to monitor for medication compliance and for any psychotropic medication side effects, she denied any muscle stiffness, rigidity, abnormal movement, or drooling. Will continue to monitor ongoing response to treatment. Encouraged participation in milieu.
--- NOTE | 2025-01-27 12:28 | P.PN ---
Progress Note - Text Progress Note Date: 01/27/25 Interval History: Patient was seen in her room and was directable and agreeable to speak with wr iter in the room. Patient was remorseful for her past actions, writing a letter to bid writer apologizing. She states realizing that she needs to work on her behaviors and outbursts. She reports feeling better today in terms of both her attitude and mood. She reports chronic appetite difficulties, states that she normally does not eat much at home due to her being picky. Patient deferred last Monday and this was brought up again today, patient encouraged to take her medications to follow-up with her outpatient team to which she agreed. Patient was fixated on being discharged today however she did take the news of being discharged tomorrow relatively well, able to keep herself calm and more controlled than previous encounters. At this time patient denies any suicidal or homicidal ideations, intent or plan. Patient denies any auditory, visual hallucinations and denies any paranoia or delusions. Patient denies any side effects from the medications and has been compliant with meds. Mental Status Exam: General Appearance: Patient appears to be stated age is alert, directable, and cooperative. She is dressed in home clothes with fair grooming and hygiene Behavior: Patient is calmly seated without any agitated behavior. Speech: Patient's speech is fluent and nonpressured. Mood/Affect: Mood is improving mildly, affect is congruent and blunted. Suicidality/Homicidality: Patient denies having any suicidal or homicidal ideation intent or plan. Perceptions: Patient denies any visual hallucinations and denies any auditory hallucinations Though content/process: There is no evidence of any delusional thought content and thought process is linear and goal-directed. Memory and concentration: AOX3, grossly intact for the purposes of this session Judgment and insight: Improving mildly Assessment Bipolar 1 disorder, current episode mixed with psychotic features Nicotine dependence Cannabis use disorder Plan: -Patient continues to meet criteria for inpatient psychiatric admission for symptom stabilization and safety. Patient has not signed adult voluntary form and medication consent and was placed in patient's chart. -Medications: Continue Invega 6 mg at bedtime for psychosis, start melatonin 5 mg at bedtime for insomnia -When necessary Ativan and Zyprexa for agitation/aggression. -Labs: Reviewed -NRT - nicotine patch -SW on board for discharge planning. Encouraged the patient to participate in milieu. Patient deferred last Monday. Anticipate discharge home with family tomorrow
[2025-01-27] MEDS: MELATONIN 5 MG TABLET PO SCH (20:36)
[2025-01-27 21:54] VITALS: BP 103/56; PULSE 105; RESP 17; TEMP 97.3
--- NOTE | 2025-01-28 12:47 | P.DS ---
Providers Date of admission: 01/21/25 20:57 Expected date of discharge: 01/28/25 Attending physician: Chrystal Jiménez MD Consults: 01/21/25 20:58 Consult Physician Routine Consulting Provider: Kye Bull Consult Reason/Comments: H & P Do you want consulting provider notified?: Yes, Notify in am Primary care physician: Jose Prater - Discharge Diagnosis(es) (1) Bipolar 1 disorder, mixed, severe Current Visit: Yes Status: Acute Priority: High (2) Nicotine dependence Current Visit: Yes Status: Acute Priority: Low (3) Cannabis use disorder Current Visit: Yes Status: Acute Priority: Low Hospital Course: Admission HPI: Admission note was completed by contract technical writer "Patient presented to the hospital with mental health concerns. Per EPS, "Patient presented to ED initially for right foot injury, patient had jumped on a table 2 days ago and injured her foot. Patient during ER stay expressed suicidal ideations. Patient assessed in ER27 with parents at bedside per patient request. Patient observed to be sitting up in stretcher at this time. Patient observed to appear disheveled and unkept with fair hygiene. Patient observed to have no eye contact, restlessness, and observed to appear irritable and anxious. Patient denies any history of mental health concerns and no previous mental health hospitalizations. Patient states that she is looking forward to dying, althought has no current plan. Patient states that she was taking zoloft for depression and weaned herself off of it becasue she did not like how it made her feel. Patient unable to elaborate on what she did not like about the medication and could not describe how it made her feel. Patient parents expressed concerns related to auditory and visual hallucinations. Patient denies these and became irritable. Focused re-directed to patient. Patient denies any psychotic symptoms. Spoke to parents again with patient permission, per patient parents patient has been experiencing auditory and visual hallucinations. Describes that patient has believed she could hear and see people inside the home and hear them constantly in the attic. Patient has come to the point of making police reports related to people being in the home, but no other individuals found to be in the home. Parents describe patient having erratic and impulsive behaviors recently. They include that patient spontaneously went on a trip to [facility] and was placed in halfway for entering a home that she believed belonged to her because she seen the for sale sign. Patient parents express concern that patient is a potential danger to herself and possibly others at this time. Patient appears to have poor insight into condition, poor judgement, and does not understand reason for needed treatment." Patient was observed in her room and was agreeable to speak with contract technical writer in her room. Patient displayed irritability, not forthcoming with information. She did admit to stopping her antidepressant of 6 months 2 weeks ago due to "not liking my mood." Patient displayed poor eye contact and was fixated on being discharged so that she can smoke her vape. This was discouraged and contract technical writer offered either nicotine gum or patch to help with nicotine cravings however patient declined. She denied any sleep or appetite changed but did admit to low energy, anhedonia, poor concentration. Patient denies any suicidal or homicidal ideations intent or plan. At this time patient denies any auditory or visual hallucinations. Patient denies any flight of ideas racing thoughts and increased in goal directed behavior. Patient admits to using cannabis and nicotine daily. Patient was initially agreeable with [facility] however she quickly became less cooperative, more agitated and was attempting to elope the unit, requiring PRN medications." Hospital course: Upon admission to the unit patient was admitted involuntarily on a petition and certificate and a second certificate was completed and faxed to the courts. Patient ended up signing a deferral with the clinical informatics strategist and agreeing to treatment.. Patient ultimately got along well with other patients on the unit and followed unit protocol after initially being agitated, requiring as needed medications and security being called. Patient was compliant with the medications and denied any side effects throughout hospital course. Patient was started on Invega and this was increased to 6 mg at bedtime for psychosis, melatonin 5 mg at bedtime for insomnia. Patient spoke of her stressors and engaged in therapy both group and individual. Patient was also seen by medical team for history and physical exam. Throughout the course of the hospitalization patient gradually improved with regards to mood, anxiety, sleep and returned back to their baseline level of functioning. On the day of discharge patient denied any suicidal or homicidal ideations intent or plan denied any auditory or visual hallucinations. The patient denied any access to guns or weapons. Patient denied any paranoia and did not endorse any delusions. Patient does not have a significant history of substance abuse and was coun seled on abstaining from all substances including alcohol and marijuana. Patient was also counseled on the medications and need for regular compliance and was encouraged to follow-up with their outpatient appointment for mental health and also for primary care. Patient to be discharged home with family and will follow-up with [facility]. She was reminded of her deferral status and she acknowledged the need to continue taking her medications and follow-up with [facility]. Mental status exam: General Appearance: Patient appears to be stated age is alert, pleasant, and cooperative. Patient is in no acute distress and has improved hygiene and grooming Behavior: Patient is calmly seated without any agitated behavior. Speech: Patient's speech is fluent and nonpressured. Mood/Affect: Patient reports their mood is "better", affect is congruent and euthymic. Suicidality/Homicidality: Patient denies having any suicidal or homicidal ideation intent or plan. Perceptions: Patient denies any auditory or visual hallucinations. Though content/process: There is no evidence of any delusional thought content and thought process is linear and goal-directed. More future oriented Memory and concentration: AOX3, grossly intact for the purposes of this session. Can spell "WORLD" backwards correctly. Judgment and insight: Fair Impression: Bipolar 1 disorder, current episode mixed with psychotic features Nicotine dependence Cannabis use disorder Plan: -Continue with discharge today as patient has improved and stabilized psychiatrically and is not currently an imminent threat to themself and/or othe rs. -Continue medications: Invega 6 mg at bedtime, melatonin 5 mg at bedtime -Patient was counseled on the need for medication compliance and appropriate follow-up at mental health and also primary care for medical issues. Patient verbalized understanding and agreed. -Social work to help coordinate patients discharge today. also to ensure safe home environment that guns/weapons are either removed from the home or locked away. Social work also to arrange for patients follow up appointments with [facility] for psychiatric care along with follow up with primary care provider. -Patient counseled on abstaining from recreational drugs and marijuana and alcohol. Was informed/educated on the adverse effects on their physical and mental health. Patient verbally agreed and understood. -Patient was instructed to return to the hospital or seek immediate medical care if their psychiatric or medical symptoms do worsen or reoccur. Abnormal Labs 01/22/25 01/22/25 07:49 07:49 Urine Appearance Cloudy H Urine Protein Trace H Urine Blood Moderate H Urine Mucus Many H Ur Amphetamine Screen Positive A U Benzodiazepines Scrn Positive A U Cannabinoids Screen Positive A Allergies Allergy/AdvReac Type Severity Reaction Status Date / Time salmon oil Allergy Rash/Hives Verified 01/24/25 18:54 Vital Signs Temp 97.3 F L 01/27/25 21:00 Pulse 105 H 01/27/25 21:00 Resp 17 01/27/25 21:00 BP 103/56 01/27/25 21:00 Pulse Ox 98 01/27/25 21:00 FiO2 Patient Condition at Discharge: Stable Plan - Discharge Summary Discharge Rx Participant: No New Discharge Prescriptions: New Melatonin 5 mg PO HS 30 Days #30 tab Nicotine 14Mg/24Hr Patch [Habitrol] 1 patch TRANSDERM DAILY patch Paliperidone [Invega] 6 mg PO HS 30 Days #30 tab Nicotine Gum (Polacrilex) [Nicorette] 2 mg BUCCAL Q4HR PRN pieceofgum PRN Reason: Nicotine Cravings Discharge Medication List Melatonin 5 mg PO HS 30 Days #30 tab 01/28/25 [Rx] Nicotine 14Mg/24Hr Patch [Habitrol] 1 patch TRANSDERM DAILY patch 01/28/25 [Rx] Nicotine Gum (Polacrilex) [Nicorette] 2 mg BUCCAL Q4HR PRN pieceofgum 01/28/25 [Rx] Paliperidone [Invega] 6 mg PO HS 30 Days #30 tab 01/28/25 [Rx] Follow up Appointment(s)/Referral(s): Jose Prater MD [Primary Care Provider] - 1-2 days Patient Instructions/Handouts: Depression (DC), Anxiety (ED) Activity/Diet/Wound Care/Special Instructions: Avoid the use of street drugs and alcohol. Take all medications as prescribed. When you are in need of refills on your medications, please contact your medical provider and/or outpatient psychiatrist/provider to have this done. Please go to your scheduled outpatient appointment for aftercare treatment. If symptoms return or become worse, call the crisis line at and/or go to the nearest emergency room for evaluation. National Suicide Hotline [address] confidentiality statement: "The information contained in this communication, including attachments, is confidential, may be privileged, and is intended only for the use of the named recipient(s). Unauthorized use, disclosure, forwarding or copying is strictly prohibited and may be unlawful. If you have received this communication in error, please notify me IMMEDIATELY at the phone number or pager listed above. Discharge Disposition: HOME SELF-CARE
== END 2025-01-28 12:58 | disposition home or self-care (01) | DRG 750 ==
LOC: EC 14:51 → 3MHU 20:57
PROVIDERS: ADMIT Psychiatry & Neurology Psychiatry; ATTEND Psychiatry & Neurology Psychiatry
DX: F31.64 Bipolar disorder, current episode mixed, severe, with psychotic features (principal); F43.22 Adjustment disorder with anxiety; F17.290 Nicotine dependence, other tobacco product, uncomplicated; F12.10 Cannabis abuse, uncomplicated; G47.00 Insomnia, unspecified; R45.851 Suicidal ideations; R45.1 Restlessness and agitation; S91.319A Laceration without foreign body, unspecified foot, initial encounter; Z56.0 Unemployment, unspecified; Z28.310 Unvaccinated for COVID-19; Z28.21 Immunization not carried out because of patient refusal; Z71.51 Drug abuse counseling and surveillance of drug abuser; Z71.89 Other specified counseling; Z78.1 Physical restraint status
CPT/HCPCS: 80306; 81001; 81025; 82075; 87635; 99285